=== PATIENT | male | born 1950 | race Hispanic/Latino ===

== ENCOUNTER 2021-04-30 09:28 | Emergency (ER) | payer OTHER ==
--- OUTSIDE RECORDS SUMMARY | 2021-04-30 09:30 | XMS REPORT | Continuity of Care Document ---
:1950 Author Organization [facility] t Address [address] [place] [address] Care Team Providers Name Role Phone Unavailable Unavailable Unavailable Problems Condition Condition Condition Status Onset Resolution Last Treating Co mments Source Name Details Category Date Date Treatment Clinician Date Hyperchole Hyperchole Problem Active 2019-11 V illage sterolemia sterolemia 12-09 Fa alexia 00:00: Practic 00 e Essential Essential Problem Active 2019-11 Moria rosemarie hypertensi Hypertensi -13 Fa alexia on on 00:00: Practic 00 e Allergies, Adverse Reactions, Alerts This patient has no known allergies or adverse reactions. Social History Smoking Status Start Date Stop Date Source Never Smoker [facility] Medications Ordered Filled Start Stop Current Ordering Indication Dosage Frequency Signature Comments Components Source Medication Medication Date Date Medication? Clinician (SIG) Name Name pravastatin pravastatin No 1 Q1D pravastati [facility] 80 mg 80 mg n 80 mg Family tablet Take tablet Take tablet Practic 1 tablet 1 tablet Take 1 e every day every day tablet by oral by oral every day route. route. by oral route. tamsulosin tamsulosin No 1capsul Q1D tamsulosin [facility] 0.4 mg 0.4 mg e(s) 0.4 mg Family capsule capsule capsule Practi c Take 1 Take 1 Take 1 e capsule capsule capsule every day every day every day by oral by oral by oral route. route. route. allopurinol allopurinol No 1 Q1D allopurino [facility] 300 mg 300 mg l 300 mg Family tablet Take tablet Take tablet Practic 1 tablet 1 tablet Take 1 e every day every day tablet by oral by oral every day route. route. by oral route. benazepril benazepril No 1 Q1D benazepril [facility] 40 mg 40 mg 40 mg Family tablet Take tablet Take tablet Practic 1 tablet 1 tablet Take 1 e every day every day tablet by oral by oral every day route. route. by oral route. carvedilol carvedilol No 1 BID carvedilol [facility] 12.5 mg 12.5 mg 12.5 mg Family tablet Take tablet Take tablet Practic 1 tablet 1 tablet Take 1 e twice a day twice a day tablet by oral by oral twice a route. route. day by oral route. hydrochloro hydrochloro No 1capsul Q1D hydrochlor Village thiazide thiazide e(s) othiazide Fa alexia 12.5 mg 12.5 mg 12.5 mg Practi c capsule capsule capsule e Take 1 Take 1 Take 1 capsule capsule capsule every day every day every day by oral by oral by oral route. route. route. omeprazole omeprazole No 1capsul Q1D omeprazole [facility] 40 mg 40 mg e(s) 40 mg Family capsule,del capsule,del capsule,de Practic ayed ayed layed e release release release Take 1 Take 1 Take 1 capsule capsule capsule every day every day every day by oral by oral by oral route. route. route. Omeprazole Omeprazole Yes Da [address] [facility] Lotensin Lotensin Yes Da [address] [facility] Benazepril Benazepril Yes Da [address] [facility] [address] HCl HCl [facility] Pravastatin Pravastatin Yes Da [address] [facility] Sodium Sodium [facility] Omeprazole Omeprazole Yes Da [address] [facility] Pravastatin Pravastatin Yes Da [address] [facility] [address] Sodium Sodium [facility] Carvedilol Carvedilol Yes Da [address] [facility] Allopurinol Allopurinol 2020- No Da [address] [facility] 06-08 [facility] Tamsulosin Tamsulosin 2018- No Da [address] [facility] [address] HCl HCl 12-01 [facility] Clinics Immunizations Ordered Filled Immunization Date Status Comments [facility] Immunization Name Name influenza, influenza, 2020-08-27 Completed [facility] injectable, injectable, 00:00:00 Practice quadrivalent quadrivalent FluAD FluAD 2018-11-[address] [facility] Vital Signs Vital Name Observation Time Observation Value Comments Source BP Diastolic 2021-04-08 00:00:00 80 mm[Hg] [facility] Height 2021-04-08 00:00:00 66 [in_i] [facility] BMI (Body Mass 2021-04-08 00:00:00 29.1 kg/m2 [facility] Family Index) Practice BP Systolic 2021-04-08 00:00:00 150 mm[Hg] [facility] Body Weight 2021-04-08 00:00:00 180 [lb_av] [facility] Height 2020-10-09 00:00:00 66 [in_i] [facility] BMI (Body Mass 2020-10-09 00:00:00 32.3 kg/m2 [facility] Index) Practice Body Weight 2020-10-09 00:00:00 200 [lb_av] [facility] Procedures This patient has no known procedures. Plan of Care Planned Activity Planned Date Details Comments Source Future Appointment 2021-10-12 00:00:00 Molly Ronda juwan 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 2021-03-02 2021-03-02 Outpatient [facility] [id number] [facility] 2021-02-08 2021-02-08 Outpatient [facility] [id number] [facility] 2021-02-08 2021-02-08 Outpatient [facility] [id number] [facility] 2020-11-06 2020-11-06 Outpatient [facility] [id number] [facility] 2020-11-06 2020-11-06 Out[facility] [id number] [facility] 2020-11-02 2020-11-02 Outpatient [facility] [id number] [facility] 2020-10-09 2020-10-09 Molly [facility] [place] - [id number] V illage 00:00:00 00:00:00 [facility] 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 2020-08-04 2020-08-04 [facility] [id number] 08:40:00 08:40:00 t [employer] [facility] l Medicine Outpati ent Clinics 2020-05-07 2020-05-07 [facility] [id number] 09:00:00 09:00:00 t Specialty/U Isabella kes - Specialty rology [facility] a /Urology Clinic l Clinic Outpati ent Clinics 2020-05-05 2020-05-05 [facility] [id number] 11[facility]00:00 11:00:00 t [employer] [facility] Medicine l Medicine Outpati ent Clinics 2019-12-27 2019-12-27 [facility] [id number] 08:00:00 08:00:00 t [employer] - [employer] [facility] Medicine Outpati ent Clinics 2019-12-19 2019-12-19 [facility] [id number] [facility] 16[facility]29:00 16:29:00 t [employer] [facility] Medicine Outpati ent Clinics 2019-11-06 2019-11-06 [facility] [id number] 09:00:00 09:00:00 t Specialty/U Isabella kes - Specialty rology [facility] /Urology Clinic l Clinic Outpati ent Clinics 2019-08-30 2019-08-30 [facility] [id number] 08:15:00 08:15:00 t [employer] [facility] Medicine Outpati ent Clinics 2019-05-08 2019-05-08 [facility] [id number] 09:00:00 09:00:00 t Specialty/U Isabella kes - Specialty rology [facility] /Urology Clinic l Clinic Outpati ent Clinics 2019-01-01 2019-01-01 [facility] [id number] 08:15:00 08:15:00 t [employer] [facility] Medicine Outpati ent Clinics 2018-11-08 2018-11-08 [facility] [id number] 09:00:00 09:00:00 t Specialty/U Isabella kes - Specialty rology [facility] /Urology Clinic l Clinic Outpati ent Clinics 2018-11-06 2018-11-06 [facility] [id number] 08[facility]00:00 08:00:00 t [employer] [facility] Medicine Outpati ent Clinics 2018-08-31 2018-08-31 [facility] [id number] 08:30:00 08:30:00 t [employer] [facility] Medicine Outpati ent Clinics 2018-06-28 2018-06-28 [facility] [id number] 09:29:00 09:29:00 t [employer] [facility] Outpati ent Clinics 2018-06-28 2018-06-28 [facility] [id number] 09:00:00 09:00:00 t Specialty/U Isabella kes - Specialty rology [facility] a /Urology Clinic l Clinic Outpati ent Clinics 2018-06-27 2018-06-27 [facility] [id number] 10:15:00 10:15:00 t [employer] [facility] Outpati ent Clinics 2018-06-25 2018-06-25 [facility] [id number] 13:51:00 13:51:00 t [employer] [facility] Outpati ent Clinics 2018-04-09 2018-04-09 [facility] [id number] 08:30:00 08:30:00 t [employer] [facility] Outpati ent Clinics Results This patient has no known results.
[2021-04-30 13:32] LABS: Absolute Lymphocytes (CBC) 2.8 K/uL (0.7-4.9); Basophils % 0.5 % (0-1.3); Lymphocytes % 22.9 % (15.3-44.8); MPV 8.4 fL (7.6-11.3)
[2021-04-30 13:37] LABS: Protime INR 0.97
--- NOTE | 2021-04-30 13:37 | RAD REPORT ---
EXAM DESCRIPTION: Luz Maria Single View04/30/2021 1:23 pm CLINICAL HISTORY: Swelling COMPARISON: none FINDINGS: The lungs appear clear of acute infiltrate. The heart is normal size IMPRESSION: No acute abnormalities displayed
[2021-04-30] MEDS ORDERED: FUROSEMIDE 20 MG/ 2ML VIAL ONE (13:49)
[2021-04-30 13:50] LABS: ALT/SGPT 54 U/L (12-78); AST/SGOT 22 U/L (15-37); Albumin 3.5 g/dL (3.4-5.0); Alkaline Phosphatase 88 U/L (45-117); BUN Blood Urea Nitrogen 25 mg/dL (7-18); Bicarbonate 29 mmol/L (21-32); Bilirubin Direct 0.2 mg/dL (0-0.2); Bilirubin Total 0.5 mg/dL (0.2-1.0); Glucose Level 78 mg/dL (74-106); Magnesium 2.2 mg/dL (1.8-2.4); NT PRO-BNP 222 pg/mL (<125); Potassium 3.9 mmol/L (3.5-5.1); Protein, Total 6.3 g/dL (6.4-8.2); Sodium Level 135 mmol/L (136-145); Troponin (Emerg Dept Use Only) < 0.02 ng/mL (0.0-0.045)
[2021-04-30 14:06] LABS: Blood Morphology Comment NOT SEEN (NOT SEEN); Platelet Estimate ADEQ
--- NOTE | 2021-04-30 15:04 | RAD REPORT ---
EXAM DESCRIPTION: USExtrem Venous W Compress Bil04/30/2021 2:50 pm CLINICAL HISTORY: Leg swelling COMPARISON: none FINDINGS: The common femoral, superficial femoral, popliteal and posterior tibial veins bilaterally are compressible and demonstrate augmentation. Doppler demonstrates good flow. IMPRESSION: No evidence of deep venous thrombosis involving either lower extremity.
--- NOTE | 2021-04-30 15:07 | ER ---
Nurse's Notes [facility] Name: Juan Diego Burnham Age: 70 yrs Sex: Male : 1950 Arrival Date: 04/30/2021 Time: 09:31 Bed 25 Private MD: Da Templeton Diagnosis: Edema, not elsewhere classified-peripheral;Dizziness and giddiness Presentation: 04/30 09:45 Chief complaint: Patient states: "Dr. Sullivan sent me here for the swelling in my legs. jd3 he said it would be faster to find out what is going on by coming to the ER.". Coronavirus screen: At this time, the client does not indicate any symptoms associated with coronavirus-19. Ebola Screen: Patient negative for fever greater than or equal to 101.5 degrees Fahrenheit, and additional compatible Ebola Virus Disease symptoms. Initial Sepsis Screen: Does the patient meet any 2 criteria? No. Patient's initial sepsis screen is negative. Does the patient have a suspected source of infection? No. Patient's initial sepsis screen is negative. Risk Assessment: Do you want to hurt yourself or someone else? Patient reports no desire to harm self or others. Onset of symptoms was April 17, 2021. 09:45 Method Of Arrival: Ambulatory jd3 09:45 Acuity: KARYN 3 jd3 Historical: - Allergies: 09:46 No Known Allergies; jd3 - PMHx: 09:46 High Cholesterol; Hypertension; jd3 - PSHx: 09:46 None; jd3 - Immunization history:: Adult Immunizations up to date. - Social history:: Smoking status: Patient denies any tobacco usage or history of. Screenin:45 Abuse screen: Denies threats or abuse. Denies injuries from another. Nutritional tr6 screening: No deficits noted. Tuberculosis screening: No symptoms or risk factors identified. Fall Risk None identified. Assessment: 13:42 General: Appears in no apparent distress. Behavior is calm, cooperative, appropriate tr6 for age. Pain: Complains of pain in b/l lower legs Pain began gradually. Neuro: No deficits noted. Cardiovascular: Edema is 2+ to left midcalf, left ankle, left foot, left toes, right midcalf, right ankle, right foot and right toes Rhythm is sinus bradycardia Chest pain is denied. Respiratory: Breath sounds with rhonchi bilaterally. in left posterior upper lobe and right posterior upper lobe Denies cough, shortness of breath labored breathing. GI: Abdomen is round distended. : No deficits noted. EENT: No deficits noted. Derm: No deficits noted. Musculoskeletal: No deficits noted. 13:47 Reassessment: pt transferred to US via wheelchair. tr6 14:47 Reassessment: pt returned to ED from US via wheelchair. tr6 Vital Signs: 09:46 BP 136 / 59; Pulse 63; Resp 16 S; Temp 98.2(TE); Pulse Ox 97% on R/A; Weight 90.72 kg jd3 (R); Height 5 ft. 6 in. (167.64 cm) (R); Pain 5/10; 13:41 BP 122 / 55; Pulse 55; Resp 18; Pulse Ox 100% on R/A; tr6 15:45 BP 119 / 62; Pulse 62; Resp 18; Pulse Ox 100% on R/A; tr6 09:46 Body Mass Index 32.28 (90.72 kg, 167.64 cm) jd3 ED Course: 09:31 Patient arrived in ED. mr 09:31 Da Templeton DO is Private Physician. mr 09:46 Triage completed. jd3 09:47 Arm band placed on. jd3 12:27 Grupo Feliciano MD is Attending Physician. kdr 12:58 Theresa Balderas, MISSAEL is Primary Nurse. tr6 13:23 XRAY Chest (1 view) In Process Unspecified. EDMS 13:45 Patient has correct armband on for positive identification. Bed in low position. Call tr6 light in reach. Side rails up X 1. 13:45 No provider procedures requiring assistance completed. Inserted saline lock: 20 gauge tr6 in left forearm, using aseptic technique. Blood collected. 14:50 US Extremity Venous W Compression Ruiz In Process Unspecified. EDMS 15:05 Da Templeton DO is Referral Physician. kdr 16:14 IV discontinued, intact, bleeding controlled, No redness/swelling at site. Pressure tr6 dressing applied. Administered Medications: 13:34 Drug: Lasix (furosemide) 20 mg Route: IVP; Site: left hand; tr6 Output: 16:15 Urine: 1000ml (Voided); Total: 1000ml. tr6 Outcome: 15:07 Discharge ordered by . kdr 16:13 Discharged to home ambulatory. tr6 16:13 Condition: stable 16:13 Discharge instructions given to patient, family, Instructed on discharge instructions, follow up and referral plans. safety practices, Demonstrated understanding of instructions, follow-up care, medications, Prescriptions given X 1. 16:18 Patient left the ED. tr6 Signatures: Dispatcher [employer] EDMS Grupo Feliciano MD MD kdr Rivera, Mary mr Davies, Jonathon, RN RN Theresa Burr RN RN tr6 Corrections: (The following items were deleted from the chart) 13:48 13:42 Cardiovascular: Rhythm is sinus bradycardia Chest pain is denied tr6 tr6
--- NOTE | 2021-04-30 15:07 | EDPHYS ---
Physician Documentation [facility] Name: Juan Diego Burnham Age: 70 yrs Sex: Male : 1950 Arrival Date: 04/30/2021 Time: 09:31 Bed 25 Private MD: Jareth [facility] ED Physician Grupo Feliciano HPI: 04/30 15:18 This 70 yrs old Male presents to ER via Ambulatory with complaints of Leg kdr Swelling, Dizziness. 15:18 The patient presents with swelling. The complaints affect the lateral aspect of left kdr calf, left lateral ankle, left calf, left Achilles, medial aspect of left calf, left medial ankle, left ruffin and anterior aspect of left ankle, lateral aspect of right calf, right ankle, right calf, right Achilles, medial aspect of right calf, right ruffin and anterior aspect of right ankle. Context: The problem was sustained at home, resulted from an unknown cause. Historical: - Allergies: 09:46 No Known Allergies; jd3 - PMHx: 09:46 High Cholesterol; Hypertension; jd3 - PSHx: 09:46 None; jd3 - Immunization history:: Adult Immunizations up to date. - Social history:: Smoking status: Patient denies any tobacco usage or history of. ROS: 18:01 Constitutional: Negative for fever, chills, and weight loss, Eyes: Negative for injury, kdr pain, redness, and discharge, Neck: Negative for injury, pain, and swelling, Cardiovascular: Negative for chest pain, palpitations, and edema, Respiratory: Negative for shortness of breath, cough, wheezing, and pleuritic chest pain, Back: Negative for injury and pain, : Negative for injury, bleeding, discharge, and swelling, MS/Extremity: Negative for injury and deformity, Skin: Negative for injury, rash, and discoloration, Neuro: Negative for headache, weakness, numbness, tingling, and seizure activity. 18:01 Abdomen/GI: Positive for abdominal pain, nausea, Negative for black/tarry stool, rectal pain, rectal bleeding, bowel incontinence, flatulence. Exam: 15:15 Constitutional: This is a well developed, well nourished patient who is awake, alert, kdr and in no acute distress. Head/Face: Normocephalic, atraumatic. Eyes: Pupils equal round and reactive to light, extra-ocular motions intact. Lids and lashes normal. Conjunctiva and sclera are non-icteric and not injected. Cornea within normal limits. Periorbital areas with no swelling, redness, or edema. Neck: Trachea midline, no thyromegaly or masses palpated, and no cervical lymphadenopathy. Supple, full range of motion without nuchal rigidity, or vertebral point tenderness. No Meningismus. Chest/axilla: Normal chest wall appearance and motion. Nontender with no deformity. No lesions are appreciated. Respiratory: Lungs have equal breath sounds bilaterally, clear to auscultation and percussion. No rales, rhonchi or wheezes noted. No increased work of breathing, no retractions or nasal flaring. Abdomen/GI: Soft, non-tender, with normal bowel sounds. No distension or tympany. No guarding or rebound. No evidence of tenderness throughout. Back: No spinal tenderness. No costovertebral tenderness. Full range of motion. Skin: Warm, dry with normal turgor. Normal color with no rashes, no lesions, and no evidence of cellulitis. MS/ Extremity: Pulses equal, no cyanosis. Neurovascular intact. Full, normal range of motion. Neuro: Awake and alert, GCS 15, oriented to person, place, time, and situation. Cranial nerves II-XII grossly intact. Motor strength 5/5 in all extremities. Sensory grossly intact. Cerebellar exam normal. Normal gait. Psych: Awake, alert, with orientation to person, place and time. Behavior, mood, and affect are within normal limits. 15:15 Cardiovascular: Rate: normal, Rhythm: irregular, Pulses: no pulse deficits are appreciated, Heart sounds: normal, Edema: 1+ edema to level of left midcalf, left ankle, right midcalf and right ankle. 15:15 ECG was reviewed by the Attending Physician. Vital Signs: 09:46 BP 136 / 59; Pulse 63; Resp 16 S; Temp 98.2(TE); Pulse Ox 97% on R/A; Weight 90.72 kg jd3 (R); Height 5 ft. 6 in. (167.64 cm) (R); Pain 5/10; 13:41 BP 122 / 55; Pulse 55; Resp 18; Pulse Ox 100% on R/A; tr6 15:45 BP 119 / 62; Pulse 62; Resp 18; Pulse Ox 100% on R/A; tr6 09:46 Body Mass Index 32.28 (90.72 kg, 167.64 cm) jd3 MDM: 15:07 Patient medically screened. kdr 15:15 Data reviewed: vital signs, nurses notes, lab test result(s), radiologic studies. kdr Counseling: I had a detailed discussion with the patient and/or guardian regarding: the historical points, exam findings, and any diagnostic results supporting the discharge/admit diagnosis, lab results, radiology results, the need for outpatient follow up. Response to treatment: the patient's symptoms have mildly improved after treatment. Special discussion: Based on the patient's history, exam, and Dx evaluation, there is no indication for emergent intervention or inpatient Tx. It is understood by the patient/guardian that if the Sx's persist or worsen they need to return immediately for re-evaluation. I discussed with the patient/guardian in detail that at this point there is no indication for admission to the hospital. It is understood, however, that if the symptoms persist or worsen the patient needs to return immediately for re-evaluation. 04/30 12:56 Order name: Basic Metabolic Panel; Complete Time: 14:[address] [facility] 04/30 12:56 Order name: CBC with Diff; Complete Time: 14:[address] [facility] 04/30 12:56 Order name: LFT's; Complete Time: 14:[address] [facility] 04/30 12:56 Order name: Magnesium; Complete Time: 14:[address] [facility] 04/30 12:56 Order name: NT PRO-BNP; Complete Time: 14:[address] [facility] 04/30 12:56 Order name: PT-INR; Complete Time: 14:[address] [facility] 04/30 12:56 Order name: US Extremity Venous W Compression Ruiz; Complete Time: 15:29 kdr 04/30 12:56 Order name: Troponin (emerg Dept Use Only); Complete Time: 14:[address] [facility] 04/30 12:56 Order name: XRAY Chest (1 view); Complete Time: 14:[address] [facility] 04/30 12:56 Order name: EKG; Complete Time: 12:[address] [facility] 04/30 12:56 Order name: Cardiac monitoring; Complete Time: 13:[address] [facility] 04/30 12:56 Order name: EKG - Nurse/Tech; Complete Time: 15:[address] [facility] 04/30 13:38 Order name: Manual Differential; Complete Time: 14:14 [facility] 04/30 12:56 Order name: IV Saline Lock; Complete Time: 13:[address] [facility] 04/30 12:56 Order name: Labs collected and sent; Complete Time: 13:[address] [facility] 04/30 12:56 Order name: O2 Per Protocol; Complete Time: 13:[address] [facility] 04/30 12:56 Order name: O2 Sat Monitoring; Complete Time: 13:[address] [facility] EC:15 Rate is 63 beats/min. Rhythm is irregular, Sinus Rhythm with PACs, Right bundle branch kdr block. QRS [place] is Normal. HI interval is normal. QRS interval is normal. QT interval is normal. Clinical impression: Sinus arrythmia. Administered Medications: 13:34 Drug: Lasix (furosemide) 20 mg Route: IVP; Site: left hand; tr6 Disposition: 04/30/21 15:07 Discharged to Home. Impression: Edema, not elsewhere classified - peripheral, Dizziness and giddiness. - Condition is Stable. - Discharge Instructions: Edema, [id number], Dizziness, [id number], Peripheral Edema. - Prescriptions for Meclizine 25 mg Oral Tablet - take 1 tablet by ORAL route every 8 hours As needed; 15 tablet. - Medication Reconciliation Form, Thank You Letter form. - Follow up: Da Templeton DO; When: 2 - 3 days; Reason: If symptoms return, Further diagnostic work-up, Recheck today's complaints, Continuance of care, Re-evaluation by your physician. - Problem is new. - Symptoms have improved. Signatures: Dispatcher [employer] [facility] Grupo Feliciano MD MD kdr Ric Soria RN RN jTheresa Pena RN RN tr6 Corrections: (The following items were deleted from the chart) 15:07 15:07 04/30/2021 15:07 Discharged to Home. Impression: Edema, not elsewhere classified kdr - peripheral. Condition is Stable. Forms are Medication Reconciliation Form, Thank You Letter, Antibiotic Education, Prescription Opioid Use. Follow up: Da Templeton; When: 2 - 3 days; Reason: If symptoms return, Further diagnostic work-up, Recheck today's complaints, Continuance of care, Re-evaluation by your physician. Problem is new. Symptoms have improved. kdr 16:18 15:07 04/30/2021 15:07 Discharged to Home. Impression: Edema, not elsewhere classified tr6 - peripheral; Dizziness and giddiness. Condition is Stable. Forms are Medication Reconciliation Form, Thank You Letter, Antibiotic Education, Prescription Opioid Use. Follow up: Da Templeton; When: 2 - 3 days; Reason: If symptoms return, Further diagnostic work-up, Recheck today's complaints, Continuance of care, Re-evaluation by your physician. Problem is new. Symptoms have improved. kdr
[2021-04-30 17:21] VITALS: TEMP 98.2
[2021-04-30 17:22] VITALS: O2SAT 100
[2021-04-30 17:24] VITALS: BP 119/62
== END 2021-04-30 16:18 | disposition home or self-care (01) ==
LOC: ER 09:28
DX: R22.43 Localized swelling, mass and lump, lower limb, bilateral (principal); R42 Dizziness and giddiness; I10 Essential (primary) hypertension; E78.00 Pure hypercholesterolemia, unspecified
CPT/HCPCS: 85025; 80048; 36415; 83735; 85610; 80076; 84484; 83880; 71045; 93970; 96374; 99284; J1940; 93005